=== PATIENT | female | born 1955 ===

== ENCOUNTER → 2019-02-22 | Outpatient (REF) | payer BC ==
[2019-02-24 14:08] LABS: HPV HYBRID CAPTURE II Negative (Negative)
== END ==
LOC: M LAB REF 12:56
PROVIDERS: ATTEND Physician Assistant
DX: Z12.4 Encounter for screening for malignant neoplasm of cervix (principal)

== ENCOUNTER → 2019-12-11 | Outpatient (CLI) | payer BC ==
--- NOTE | 2019-12-11 15:17 | REP ---
Clinical: Nontraumatic left foot and ankle pain. Technique: AP, lateral, bilateral oblique views of the left. Findings: Generalized age-related changes are appreciated. No acute fracture dislocation. No focal swelling. No periosteal reaction. No subcutaneous emphysema or foreign body. Surrounding soft tissues are unremarkable. Impression: Generalized age-related changes. No obvious acute process. Electronically Signed by David Anne MD 12/11/2019 03:09 P
--- NOTE | 2019-12-11 15:18 | REP ---
Clinical: Nontraumatic left ankle pain . Technique: AP, lateral, bilateral oblique views. Findings: No acute fracture or dislocation. Skeletal structures and joint spaces are intact and normal. Ankle mortise appears stable. No subcutaneous emphysema or radiodense foreign body. Impression: Normal age-appropriate left ankle radiograph series. Electronically Signed by David Anne MD 12/11/2019 03:10 P
== END ==
LOC: M WUC 14:52
PROVIDERS: ATTEND Nurse Practitioner Family
DX: M25.572 Pain in left ankle and joints of left foot (principal)

== ENCOUNTER → 2020-02-29 | Outpatient (REF) | payer BC ==
[2020-04-14 11:47] LABS: ALT/SGPT 16 U/L (12-78); BILIRUBIN,TOTAL 0.6 MG/DL (0.2-1.0); BLOOD UREA NITROGEN 12 MG/DL (7-18); CALCIUM LEVEL 9.2 MG/DL (8.8-10.2); CARBON DIOXIDE LEVEL 31 MEQ/L (21-32); CHLORIDE LEVEL 111 MEQ/L (98-107); CHOLESTEROL LEVEL 201 MG/DL (<200); CREATININE FOR GFR 0.78 MG/DL (0.55-1.30); GLOMERULAR FILTRATION RATE > 60.0 (>45); GLUCOSE, FASTING 106 MG/DL (70-100); HDL CHOLESTEROL 64 MG/DL (>40); LDL CHOLESTEROL 124 MG/DL (<100); NON-HDL-C 137 MG/DL; POTASSIUM SERUM 4.3 MEQ/L (3.5-5.1); SODIUM LEVEL 144 MEQ/L (136-145); TOTAL PROTEIN 6.9 GM/DL (6.4-8.2); TRIGLYCERIDES LEVEL 66 MG/DL (<150)
== END ==
LOC: M PLALAB 08:09
PROVIDERS: ATTEND Physician Assistant
DX: E78.2 Mixed hyperlipidemia (principal)